=== PATIENT | female | born 1990 | race African-American/Black ===

== ENCOUNTER 2017-01-14 16:17 | Emergency (ER) | payer SELFPAY ==
[2017-01-14 16:37] VITALS: BP 123/72
--- NOTE | 2017-01-14 18:59 | RADIOLOGY REPORT (SQ) ---
EXAM DESCRIPTION: WRIST LEFT 3 VIEWS COMPLETED DATE/TIME: 01/14/2017 5:52 pm REASON FOR STUDY: pain COMPARISON: None. NUMBER OF VIEWS: Three views. TECHNIQUE: AP, lateral, and oblique radiographic images acquired of the left wrist. LIMITATIONS: None. FINDINGS: MINERALIZATION: Normal. BONES: No acute fracture or dislocation. No worrisome bone lesions. Normal alignment. SOFT TISSUES: No soft tissue swelling. No foreign body. OTHER: No other significant finding. IMPRESSION: No fracture identified. TECHNICAL DOCUMENTATION: JOB ID: [id number] [employer]- All Rights Reserved
--- NOTE | 2017-01-14 19:01 | RADIOLOGY REPORT (SQ) ---
EXAM DESCRIPTION: ANKLE LEFT COMPLETE COMPLETED DATE/TIME: 01/14/2017 5:52 pm REASON FOR STUDY: pain COMPARISON: None. NUMBER OF VIEWS: Three views. TECHNIQUE: AP, lateral, and oblique radiographic images acquired of the left ankle. LIMITATIONS: None. FINDINGS: MINERALIZATION: Normal. BONES: No acute fracture or dislocation. No worrisome bone lesions. JOINTS: No effusions. SOFT TISSUES: Lateral soft tissue swelling. No foreign body. OTHER: No other significant finding. IMPRESSION: No fracture identified. TECHNICAL DOCUMENTATION: JOB ID: [id number] [id number]- All Rights Reserved
[2017-01-14] MEDS ORDERED: HYDROCODONE/ACETAMINOPHEN 5-325 MG 6 TAB/DSPK PO PRN (19:11)
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
== END 2017-01-14 19:28 | disposition home or self-care (01) ==
LOC: ER 16:17
DX: S66.912A Strain of unspecified muscle, fascia and tendon at wrist and hand level, left hand, initial encounter (principal); S96.912A Strain of unspecified muscle and tendon at ankle and foot level, left foot, initial encounter; S09.90XA Unspecified injury of head, initial encounter; V87.7XXA Person injured in collision between other specified motor vehicles (traffic), initial encounter
CPT/HCPCS: 99284

== ENCOUNTER 2018-07-12 18:14 | Emergency (ER) | payer BC ==
[2018-07-12 18:31] VITALS: BP 108/55
[2018-07-12] MEDS ORDERED: IBUPROFEN 800 MG TABLET PO ONE (19:03)
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
== END 2018-07-12 19:15 | disposition home or self-care (01) ==
LOC: ER 18:14
DX: S09.21XA Traumatic rupture of right ear drum, initial encounter (principal); W50.0XXA Accidental hit or strike by another person, initial encounter
CPT/HCPCS: 99283

== ENCOUNTER 2018-07-20 21:41 | Emergency (ER) | payer BC ==
[2018-07-20] MEDS ORDERED: SULFAMETHOXAZOLE/TRIMETHOPRIM 800-160 MG TABLET PO ONE (23:05)
[2018-07-20] MEDS ORDERED: HYDROCODONE/ACETAMINOPHEN 5-325 MG (6 TAB/ER DISP) PO PRN (23:05)
[2018-07-20] MEDS ORDERED: CEPHALEXIN 500 MG CAPSULE PO ONE (23:05)
--- NOTE | 2018-07-20 23:11 | ER Document Report ---
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 Patient states that area will become tender and then will eventually start to spontaneously drain from the same site each time. Patient states she did have surgery on this area and that the drainage always comes from the previous surgical site. Patient denies any fever abdominal pain or vaginal discharge. Patient denies any concerns about sexually transmitted infections. Patient states that she has had pain for the past 2 days but started to have drainage today. Associated Symptoms: denies: Fever, Nausea, Vomiting Exacerbated by: Denies Relieved by: Denies Similar symptoms previously: Yes Recently seen / treated by doctor: No - ROS ROS below otherwise negative: Yes Systems Reviewed and Negative: Yes All other systems reviewed and negative - CONSTITUTIONAL Constitutional: DENIES: Fever, Chills - GASTROINTESTINAL Gastrointestinal: DENIES: Abdominal Pain, Nausea, Patient vomiting - URINARY Urinary: DENIES: Dysuria - MUSCULOSKELETAL Musculoskeletal: DENIES: Extremity pain, Back Pain - DERM Skin Color: Normal Notes: Drainage from old scarred surgical site Past Medical History - General Information source: Patient - Social History Smoking Status: Current Every Day Smoker Smoking Education Provided: Yes Frequency of alcohol use: None Drug Abuse: None 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 IN LAST 30 DAYS: No - HEENT HEENT: Atraumatic, Normocephalic - NECK Neck: Normal Inspection, Supple - RESPIRATORY Respiratory: Breath Sounds Normal, No Respiratory Distress - CARDIOVASCULAR Cardiovascular: Regular Rate, Regular Rhythm - REPRODUCTIVE Female Genitalia: Abnormal Inspection Notes: Purulent drainage noted to right inguinal fold just posterior to labia majora, no palpable abscess felt to need to be drained, normal skin color. - BACK Back: Normal Inspection - MUSCULOSKELETAL/EXTREMETIES Musculoskeletal/Extremeties: KUNAL SANCHEZ - NEURO Level of Consciousness: Awake, Alert, Appropriate Motor/Sensory: No Motor Deficit - DERM Integumentary: Warm, Dry, Abscess - right inguinal fold/posterior labia area Course - Re-evaluation Re-evalutation: 07/20/18 23:07 I was able to express purulent drainage by applying pressure just inside vaginal wall and moving laterally to the 8 o'clock position, there was no palpable area of fluctuance, no obvious induration. There was no communication vaginally to the draining fistula site. 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 Patient reports that area will become tender and start to drain 1-2 times a year. Patient denies any fever. Patient without any abdominal tenderness. Patient states that she did have this area surgically drained once but ever since then she has drainage that spontaneously comes out from the opening of her previous surgery. Patient nontoxic in appearance. No concern for sepsis at this time. Will cover with antibiotics and obtain wound culture at this time. Patient encouraged to follow-up with her residential solar consultant or general surgeon for definitive management of her chronic wound 07/21/18 02:04 - Vital Signs Vital signs: Temp Pulse Resp BP Pulse Ox 99.2 F 82 14 116/61 98 07/20/18 21:53 07/20/18 21:53 07/20/18 21:53 07/20/18 21:53 07/20/18 21:53 Discharge - Discharge Clinical Impression: Abscess Condition: Stable Disposition: HOME, SELF-CARE Instructions: Abscess ([facility]), Cephalexin ([facility]), Oral Narcotic Medication ([facility]), Trimethoprim-Sulfa ([facility]) Additional Instructions: Return immediately for any new or worsening symptoms Followup with your primary care provider, call tomorrow to make a followup appointment Perform warm soaks at least daily to help with symptoms Follow-up with a residential solar consultant or general surgeon for definitive management of this issue, call Saturday for an appointment Return immediately for any new or worsening symptoms, fever, increased pain swelling or redness to the area Prescriptions: Cephalexin Monohydrate [Keflex 500 mg Capsule] 500 mg PO Q6H 7 Days capsule Fluconazole [Diflucan] 150 mg PO ONCE PRN #1 tablet PRN Reason: Naproxen [Naprosyn 250 Nmg Tablet] 1 tab PO BID #14 tablet Sulfamethoxazole/Trimethoprim [Bactrim Ds Tablet] 1 each PO BID #20 tablet Forms: Smoking Cessation Education, Return to Work Referrals: FESTUS MYERS PA-C [Primary Care Provider] - Follow up as needed [facility] [Provider Group] - Follow up tomorrow [facility] [Provider Group] - Follow up as needed
[2018-07-21 02:47] VITALS: BP 116/58
== END 2018-07-21 00:02 | disposition home or self-care (01) ==
LOC: ER 21:41
DX: L02.215 Cutaneous abscess of perineum (principal); F17.200 Nicotine dependence, unspecified, uncomplicated
CPT/HCPCS: 87070; 87075; 87077; 87205; 99282

== ENCOUNTER 2018-09-19 17:09 | Emergency (ER) | payer BC ==
[2018-09-19] MEDS ORDERED: IBUPROFEN 800 MG TABLET PO ONE (17:56)
--- NOTE | 2018-09-19 17:56 | ER Document Report ---
ED Medical Screen (RME) - General Chief Complaint: Urinary Problem Stated Complaint: URINARY ISSUES Time Seen by Provider: 09/19/18 17:53 Primary Care Provider: FESTUS MYERS PA-C [Primary Care Provider] - Follow up as needed Mode of Arrival: Ambulatory Information source: Patient Notes: 28-year-old female presents to ED for vaginal pain herpes outbreak vaginal disc harge and pelvic pain with urination. She states that she has had herpes since 2016 and only has an outbreak 1 or 2 times a year. She states the pain is pretty severe and also to the rectum. She states she does have a vaginal discharge and pain with urination. She is alert and oriented respirations regular and unlabored speaking in full sentences. She states she smokes about 3 cigarettes a day and drinks about every other week. She denies any other medical history. She requested some ibuprofen and it was ordered in the pit area. Patient will need to be seen in the back to get a vaginal exam and swabs. I have greeted and performed a rapid initial assessment of this patient. A comprehensive ED assessment and evaluation of the patient, analysis of test results and completion of medical decision making process will be conducted by an additional ED providers. TRAVEL OUTSIDE OF THE [place] IN LAST 30 DAYS: No - Related Data Allergies/Adverse Reactions: No Known Allergies Allergy (Unverified 07/20/18 21:45) Past Medical History Renal/ Medical History: Denies: Hx Peritoneal Dialysis Past Surgical History: Reports: Other - Perineal abscess drainage - Immunizations Immunizations up to date: Yes Physical Exam - Vital signs Vitals: Temp Pulse Resp BP Pulse Ox 98.2 F 72 16 102/69 98 09/19/18 17:26 09/19/18 17:26 09/19/18 17:26 09/19/18 17:09/19/18 17:26 Course - Vital Signs Vital signs: Temp Pulse Resp BP Pulse Ox 98.2 F 72 16 102/69 98 09/19/18 17:26 09/19/18 17:26 09/19/18 17:26 09/19/18 17:26 09/19/18 17:26 Doctor's Discharge - Discharge Referrals: FESTUS MYERS PA-C [Primary Care Provider] - Follow up as needed
[2018-09-19 19:19] LABS: APPEARANCE,URINE CLEAR; BILIRUBIN,URINE NEGATIVE (NEGATIVE); COLOR,URINE STRAW; GLUCOSE, URINE NEGATIVE (NEGATIVE); KETONES,URINE NEGATIVE (NEGATIVE); LEUKOCYTE ESTERASE,URINE NEGATIVE (NEGATIVE); NITRITE,URINE NEGATIVE (NEGATIVE); PROTEIN,URINE NEGATIVE (NEGATIVE); URINE SPECIFIC GRAVITY 1.015; UROBILINOGEN,URINE NEGATIVE mg/dL (<2.0)
[2018-09-19] MEDS ORDERED: AZITHROMYCIN 1 GM SUSP PACKET PO ONE (19:36)
[2018-09-19] MEDS ORDERED: CEFTRIAXONE INJ 250 MG VIAL IM ONE (19:36)
--- NOTE | 2018-09-19 19:46 | ER Document Report ---
ED General - General Chief Complaint: Urinary Problem Stated Complaint: URINARY ISSUES Time Seen by Provider: 09/19/18 17:53 Primary Care Provider: FESTUS MYERS PA-C [NO LOCAL MD] - Follow up as needed Mode of Arrival: Ambulatory Information source: Patient, [facility] Records Notes: 28-year-old female with diagnosis of herpes virus and a history of trichomonas, bacterial vaginosis, chlamydia presenting to the emergency department for 2-week history of burning sensation around vagina and pain with urination. Patient complains of an odd smell when she urinates, yellow discharge, and the feeling of a lump in her perennial area. She states she noticed sores around her vagina over the past 2 weeks which are healing now. Patient reports unprotected sex, last Pap smear occurred in 2016. The patient is currently not on any medications. The patient had her tubes tied after having 2 children now age 4 and 11. Patient denies changes in urination or bowel movements, new rashes on hands/feet, GI upset. TRAVEL OUTSIDE OF THE [place] IN LAST 30 DAYS: No - HPI Onset: Other Onset/Duration: Gradual, Persistent Quality of pain: Burning Severity: Mild Pain Level: 1 Associated symptoms: denies: Chest pain, Nonproductive cough, Fever, Nausea, Vomiting, Shortness of breath Exacerbated by: Denies Relieved by: Denies Similar symptoms previously: Yes Recently seen / treated by doctor: No - Related Data Allergies/Adverse Reactions: No Known Allergies Allergy (Unverified 07/20/18 21:45) Past Medical History - General Information source: Patient - Social History Smoking Status: Never Smoker Frequency of alcohol use: Occasional Drug Abuse: None Lives with: Family Family History: None Patient has suicidal ideation: No Patient has homicidal ideation: No - Medical History Medical History: Negative Renal/ Medical History: Denies: Hx Peritoneal Dialysis Past Surgical History: Reports: Other - Perineal abscess drainage - Immunizations Immunizations up to date: Yes Review of Systems - Review of Systems Notes: REVIEW OF SYSTEMS: CONSTITUTIONAL : Denies fever, chills, or sweats. Denies recent illness. Denies weight loss, recent hospitalizations. EENT: Denies visual changes, eye pain. Denies sore throat, oral lesions, difficulty swallowing. CARDIOVASCULAR: Denies chest pain. Denies palpitations. Denies lower extremity edema. RESPIRATORY: Denies cough. Denies shortness of breath, wheezing. GASTROINTESTINAL: Denies abdominal pain or distention. Denies nausea, vomiting, or diarrhea. Denies blood in vomitus, stools, or per rectum. Denies black, tarry stools. Denies constipation. GENITOURINARY: Denies difficulty urinating, frequency, blood in urine. MUSCULOSKELETAL: Denies back or neck pain or stiffness. Denies joint pain or swelling. SKIN: Denies rash, lesions or sores. HEMATOLOGIC : Denies easy bruising or bleeding. LYMPHATIC: Denies swollen glands. NEUROLOGICAL: Denies confusion or altered mental status. Denies loss of consciousness. Denies dizziness or lightheadedness. Denies headache. Denies weakness or paralysis. Denies problems difficulty with ambulation, slurred speech. Denies sensory loss, numbness, or tingling. Denies seizures. PSYCHIATRIC: Denies anxiety or stress. Denies depression, suicidal ideation, or homicidal ideation. Denies visual or auditory hallucinations. Physical Exam - Vital signs Vitals: Temp Pulse Resp BP Pulse Ox 98.2 F 72 16 102/69 98 09/19/18 17:26 09/19/18 17:26 09/19/18 17:26 09/19/18 17:26 09/19/18 17:26 - Notes Notes: PHYSICAL EXAMINATION: GENERAL: Well-appearing, well-nourished and in no acute distress. HEAD: Atraumatic, normocephalic. EYES: Pupils equal round and reactive to light, extraocular movements intact, conjunctiva are normal. ENT: Nares patent, oropharynx clear without exudates. Moist mucous membranes. NECK: Normal range of motion, supple without lymphadenopathy LUNGS: Breath sounds clear to auscultation bilaterally and equal. No wheezes rales or rhonchi. HEART: Regular rate and rhythm without murmurs ABDOMEN: Soft, nontender, nondistended abdomen. No guarding, no rebound. No masses appreciated. Female : Pelvic exam; External genitalia with vesicular lesion to the labia majora. Speculum exam with thin white discharge Vaginal wall unremarkable. Os closed. No cervical motion tenderness. No adnexal tenderness or masses appreciated. Swabs obtained for gonorrhea, chlamydia and wet prep. Musculoskeletal: Normal range of motion, no pitting or edema. No cyanosis. NEUROLOGICAL: Cranial nerves grossly intact. Normal speech, normal gait. Normal sensory, motor exams PSYCH: Normal mood, normal affect. SKIN: Warm, Dry, normal turgor, no rashes or lesions noted. Course - Re-evaluation Re-evalutation: 09/20/18 02:16 Laboratory 09/19/18 09/19/18 09/19/18 18:06 18:06 19:34 Urine Color STRAW Urine Appearance CLEAR Urine pH 6.0 Ur Specific [place] 1.015 Urine Protein NEGATIVE Urine Glucose (UA) NEGATIVE Urine Ketones NEGATIVE Urine Blood NEGATIVE Urine Nitrite NEGATIVE Urine Bilirubin NEGATIVE Urine Urobilinogen NEGATIVE Ur Leukocyte Esterase NEGATIVE Urine WBC (Auto) 3 Urine RBC (Auto) 1 Squamous Epi Cells Auto 1 Urine Mucus (Auto) RARE Urine Ascorbic Acid NEGATIVE Urine HCG, Qual NEGATIVE Epi Cells (Wet Prep) Bacteria (Wet Prep) Trichomonas (Wet Prep) Vaginal WBC Vaginal RBC Vaginal Yeast Chlamydia DNA (PCR) Cancelled N.gonorrhoeae DNA (PCR) Cancelled 09/19/18 09/19/18 19:34 20:27 Urine Color Urine Appearance Urine pH Ur Specific [place] Urine Protein Urine Glucose (UA) Urine Ketones Urine Blood Urine Nitrite Urine Bilirubin Urine Urobilinogen Ur Leukocyte Esterase Urine WBC (Auto) Urine RBC (Auto) Squamous Epi Cells Auto Urine Mucus (Auto) Urine Ascorbic Acid Urine HCG, Qual Epi Cells (Wet Prep) 3+ EPITHELIALS SEEN Bacteria (Wet Prep) 3+ BACTERIA SEEN Trichomonas (Wet Prep) TRICHOMONAS SEEN Vaginal WBC 2+ WBCS SEEN Vaginal RBC NO RBCS SEEN Vaginal Yeast NO YEAST SEEN Chlamydia DNA (PCR) NOT DETECTED N.gonorrhoeae DNA (PCR) NOT DETECTED Temp Pulse Resp BP Pulse Ox 98.4 F 75 20 110/72 100 09/19/18 21:30 09/19/18 21:30 09/19/18 21:30 09/19/18 21:30 09/19/18 21:30 09/20/18 02:17 28-year-old female with diagnosis of herpes virus and a history of trichomonas, bacterial vaginosis, chlamydia presenting to the emergency department for 2-week history of burning sensation around vagina and pain with urination. Patient complains of an odd smell when she urinates, yellow discharge, and the feeling of a lump in her perennial area. She states she noticed sores around her vagina over the past 2 weeks which are healing now. Patient reports unprotected sex, she does express concern for sexually transmitted disease. Urinalysis not consistent with urinary tract infection. Patient hCG is negative. Wet prep is positive for trichomonas, bacterial vaginosis. Gonorrhea and Chlamydia were pending upon patient's visits and she did elect to be treated with azithromycin and Rocephin. Patient advised that her partners would need to be treated and that she would need to abstain from sexual activity for 1 week after her current partner was treated. Safe sex practices discussed. Acyclovir was prescribed for HSV maintenance. Patient was evaluated and treated as appropriate for the patient's presenting symptoms and complaint, with consideration of any critical or life threatening conditions that may be associated with their obtained history and exam as noted above. All results were discussed with patient. Bailey ent provided the opportunity to ask questions, and express concerns. Patient was educated on treatments based on their presumed diagnosis as noted above. At this time we will discharge the patient with return precautions and follow-up recommendations. Verbal discharge instructions given a the bedside. Medication warnings reviewed. Patient is in agreement with this plan and has verbalized understanding of return precautions. After careful consideration I feel that that patient can be safely discharged from the emergency department, they were advised to followup with a primary care physician in 2-3 days. Dictation on this chart was performed using voice recognition software and may result in unintended grammatical, spelling, syntax or errors. - Vital Signs Vital signs: Temp Pulse Resp BP Pulse Ox 98.4 F 75 20 110/72 100 09/19/18 21:30 09/19/18 21:30 09/19/18 21:30 09/19/18 21:30 09/19/18 21:30 Discharge - Discharge Clinical Impression: HSV-2 (herpes simplex virus 2) infection, Bacterial vaginosis, Trichomonas infection Condition: Good Disposition: HOME, SELF-CARE Instructions: Genital Herpes ([facility]), Trichomonas Infection ([facility]), Vaginosis, Bacterial ([facility]) Additional Instructions: You are being treated for bacterial vaginosis, an overgrowth of normal bacteria in the vagina. You are being sent home on an antibiotic called metronidazole. Take exactly as directed. Never drink alcohol while taking this antibiotic. Please return if you develop abdominal pain, fever greater than 101F, some vomiting, or any other symptoms that are concerning to you. You have tested positive for trichomonas which is a sexually transmitted disease. This will require 2 weeks of no sex and treatment of your sexual partner. Your exam is also consistent with genital herpes. You have also been treated for gonorrhea and chlamydia. We will not get those results for 24 hours. If they are positive you will receive a phone call and again your partner will need to be treated. Prescriptions: Acyclovir [Acyclovir 400 mg Tablet] 400 mg PO BID #60 tablet Metronidazole [Flagyl 500 mg Tablet] 500 mg PO BID #14 tablet Ondansetron [Zofran Odt 4 mg Tablet] 1 - 2 tab PO Q4H PRN #15 tab.rapdis PRN Reason: For Nausea/Vomiting Referrals: FESTUS MYERS PA-C [NO LOCAL MD] - Follow up as needed
[2018-09-19 19:53] LABS: BACTERIA (WET MOUNT) 3+ BACTERIA SEEN; EPITHELIALS (WET MOUNT) 3+ EPITHELIALS SEEN; RBCS (WET MOUNT) NO RBCS SEEN; T.VAGINALIS (WET MOUNT) TRICHOMONAS SEEN; WBCS (WET MOUNT) 2+ WBCS SEEN; YEAST (WET MOUNT) NO YEAST SEEN
[2018-09-19 21:31] VITALS: BP 110/72
[2018-09-19 23:06] LABS: CHLAM PCR NOT DETECTED (NOT DETECT); GON PCR NOT DETECTED (NOT DETECT)
== END 2018-09-19 21:27 | disposition home or self-care (01) ==
LOC: ER 17:09
DX: N76.0 Acute vaginitis (principal); B96.89 Other specified bacterial agents as the cause of diseases classified elsewhere; A59.01 Trichomonal vulvovaginitis; A60.00 Herpesviral infection of urogenital system, unspecified; R30.0 Dysuria
CPT/HCPCS: 99283; 96372; 87086; 87210; 81025; 81001; 87491; 87591; Q0144; J0696

== ENCOUNTER 2019-06-22 16:02 | Emergency (ER) | payer SELFPAY ==
--- NOTE | 2019-06-22 16:38 | ER Document Report ---
ED Medical Screen (RME) - General Chief Complaint: Pelvic Pain Stated Complaint: PELVIC PAIN Time Seen by Provider: 06/22/19 16:35 Primary Care Provider: MARK LANCE DO [Primary Care Provider] - Follow up as needed Mode of Arrival: Ambulatory Information source: Patient Notes: 29-year-old female presents to ED for complaint of bilateral lower abdomen/pelvic pain since the middle of May. She states she had a tubal ligation 5 years ago but she has not had a menstrual cycle since April. She has not had any vaginal discharge but she does have pelvic and abdominal pain. She states she has had nausea and very sleepy and tired but no vomiting and no fever. States she smokes 2 cigarettes a day rings on the weekends and denies any illicit drugs. I have greeted and performed a rapid initial assessment of this patient. A comprehensive ED assessment and evaluation of the patient, analysis of test results and completion of medical decision making process will be conducted by an additional ED providers. TRAVEL OUTSIDE OF THE [place] IN LAST 30 DAYS: No - Related Data Allergies/Adverse Reactions: No Known Allergies Allergy (Verified 06/22/19 16:31) Past Medical History Renal/ Medical History: Denies: Hx Peritoneal Dialysis Past Surgical History: Reports: Other - Perineal abscess drainage - Immunizations Immunizations up to date: Yes Physical Exam - Vital signs Vitals: Temp Pulse Resp BP Pulse Ox 98.3 F 71 16 110/68 98 06/22/19 16:06 06/22/19 16:06 06/22/19 16:06 06/22/19 16:06 06/22/19 16:06 Course - Vital Signs Vital signs: Temp Pulse Resp BP Pulse Ox 98.3 F 71 16 110/68 98 06/22/19 16:06 06/22/19 16:06 06/22/19 16:06 06/22/19 16:06 06/22/19 16:06 Doctor's Discharge - Discharge Referrals: MARK LANCE DO [Primary Care Provider] - Follow up as needed
[2019-06-22 17:13] LABS: ABSOLUTE BASOPHILS # (AUTO) 0.1 10^3/uL (0.0-0.2); ABSOLUTE EOSINOPHILS # (AUTO) 0.5 10^3/uL (0.0-0.6); ABSOLUTE LYMPHOCYTES (AUTO) 2.5 10^3/uL (0.5-4.7); ABSOLUTE MONOCYTES (AUTO) 0.7 10^3/uL (0.1-1.4); ABSOLUTE NEUT (AUTO) 4.7 10^3/uL (1.7-8.2); BASOPHILS % (AUTO) 0.8 % (0-2); EOSINOPHILS % (AUTO) 5.6 % (0-6); HEMATOCRIT 43.2 % (36.0-47.0); HEMOGLOBIN 14.3 g/dL (12.0-15.5); LYMPHOCYTES % (AUTO) 29.2 % (13-45); MEAN CORPUSCULAR HEMOGLOBIN 27.4 pg (27.0-33.4); MEAN CORPUSCULAR HGB CONC 33.2 g/dL (32.0-36.0); MEAN CORPUSCULAR VOLUME 83 fl (80-97); MONOCYTES % (AUTO) 8.6 % (3-13); PLATELET COUNT 276 10^3/uL (150-450); RED BLOOD COUNT 5.23 10^6/uL (3.72-5.28); SEGMENTED NEUTROPHILS % (AUTO) 55.8 % (42-78); TOTAL CELLS COUNTED % (AUTO) 100 %; WHITE BLOOD COUNT 8.5 10^3/uL (4.0-10.5)
[2019-06-22 17:15] LABS: APPEARANCE,URINE SLIGHTLY-CLOUDY; BILIRUBIN,URINE NEGATIVE (NEGATIVE); COLOR,URINE YELLOW; GLUCOSE, URINE NEGATIVE (NEGATIVE); KETONES,URINE NEGATIVE (NEGATIVE); PROTEIN,URINE NEGATIVE (NEGATIVE); URINE SPECIFIC GRAVITY 1.023; UROBILINOGEN,URINE NEGATIVE mg/dL (<2.0)
[2019-06-22 17:37] LABS: ALBUMIN 4.4 g/dL (3.5-5.0); ALKALINE PHOSPHATASE 59 U/L (38-126); ANION GAP 9 (5-19); ASPARTATE AMINO TRANSFERASE 26 U/L (14-36); BILIRUBIN,DIRECT 0.1 mg/dL (0.0-0.4); BILIRUBIN,TOTAL 0.3 mg/dL (0.2-1.3); BLOOD UREA NITROGEN 13 mg/dL (7-20); CALCIUM 9.5 mg/dL (8.4-10.2); CARBON DIOXIDE 29 mmol/L (22-30); CHLORIDE 101 mmol/L (98-107); GLUCOSE 70 mg/dL (75-110); POTASSIUM 3.8 mmol/L (3.6-5.0); TOTAL PROTEIN 7.8 g/dL (6.3-8.2)
--- NOTE | 2019-06-22 17:45 | RADIOLOGY REPORT (SQ) ---
EXAM DESCRIPTION: U/S NON-OB PELVIS TV W/O DOP COMPLETED DATE/TIME: 06/22/2019 5:32 pm REASON FOR STUDY: Bilateral pelvic pain COMPARISON: None. TECHNIQUE: Dynamic and static grayscale images acquired of the pelvis via transvaginal approach and recorded on PACS. Additional selected color Doppler and spectral images recorded. LIMITATIONS: Body habitus. Bowel gas. FINDINGS: UTERUS: Contour normal. No mass. ENDOMETRIAL STRIPE: There is an echogenic area within the endometrial canal. Does the patient have a n IUD? CERVIX: 1.4 cm. No nabothian cysts. RIGHT OVARY AND DOPPLER: Ovary not seen. LEFT OVARY AND DOPPLER: Ovary not seen. FREE FLUID: None noted. OTHER: No other significant finding. MEASUREMENTS: UTERUS: 5.2 x 3.9 x 2.2 cm. ENDOMETRIAL STRIPE: 10 mm. RIGHT OVARY: Ovary not seen. LEFT OVARY: Ovary not seen. IMPRESSION: Possible IUD. No acute finding in the pelvis. Study limited. The ovaries could not be seen. TECHNICAL DOCUMENTATION: JOB ID: [id number]- All Rights Reserved Rev-01/03 Reading location - IP/workstation name: [email or web address]
[2019-06-22 19:25] LABS: BACTERIA (WET MOUNT) 3+ BACTERIA SEEN; EPITHELIALS (WET MOUNT) 3+ EPITHELIALS SEEN; T.VAGINALIS (WET MOUNT) NO TRICHOMONAS SEEN; WBCS (WET MOUNT) 1+ WBCS SEEN; YEAST (WET MOUNT) NO YEAST SEEN
[2019-06-22 20:46] LABS: CHLAM PCR NOT DETECTED (NOT DETECT)
--- NOTE | 2019-06-22 20:46 | ER Document Report ---
ED GI/ - General Mode of Arrival: Ambulatory TRAVEL OUTSIDE OF THE [place] IN LAST 30 DAYS: No <AUSTEN KOTHARI - Last Filed: 06/22/19 20:41> <DESIREE NEAL - Last Filed: 06/22/19 21:40> - General Chief Complaint: Pelvic Pain Stated Complaint: PELVIC PAIN Time Seen by Provider: 06/22/19 16:35 Primary Care Provider: MARK LANCE DO [NO LOCAL MD] - Follow up as needed Notes: RME NOTE: 29-year-old female presents to ED for complaint of bilateral lower abdomen/pelvic pain since the middle of May. She states she had a tubal ligation 5 years ago but she has not had a menstrual cycle since April. She has not had any vaginal discharge but she does have pelvic and abdominal pain. She states she has had nausea and very sleepy and tired but no vomiting and no fever. States she smokes 2 cigarettes a day rings on the weekends and denies any illicit drugs. My HPI: Patient is a 29-year-old female presents to the emergency department for intermittent pelvic pain for the last month. States she did not get her menstrual cycle in May. Unsure of the date of her last menstrual period in April. Denying any vaginal discharge. States she did undergo tubal ligation approximately 5 years ago. States currently she does have bilateral pelvic pain noted. States it is sharp in nature. Patient's denying any fevers, nausea, vomiting, diarrhea. (AUSTEN KOTHARI) - Related Data Allergies/Adverse Reactions: No Known Allergies Allergy (Verified 06/22/19 16:31) Past Medical History - General Information source: Patient - Social History Smoking Status: Current Some Day Smoker Chew tobacco use (# tins/day): No Frequency of alcohol use: Occasional Drug Abuse: None Family History: None Patient has suicidal ideation: No Patient has homicidal ideation: No Renal/ Medical History: Denies: Hx Peritoneal Dialysis Past Surgical History: Reports: Hx Tubal Ligation, Other - Perineal abscess drainage - Immunizations Immunizations up to date: Yes <AUSTEN KOTHARI - Last Filed: 06/22/19 20:41> Review of Systems - Review of Systems Constitutional: denies: Fever EENT: No symptoms reported Cardiovascular: No symptoms reported Respiratory: No symptoms reported Gastrointestinal: No symptoms reported Genitourinary: See HPI Female Genitourinary: See HPI Musculoskeletal: No symptoms reported Skin: No symptoms reported Hematologic/Lymphatic: No symptoms reported Neurological/Psychological: No symptoms reported <AUSTEN KOTHARI - Last Filed: 06/22/19 20:41> Physical Exam <AUSTEN KOTHARI - Last Filed: 06/22/19 20:41> - Vital signs Vitals: Temp Pulse Resp BP Pulse Ox 98.3 F 71 16 110/68 98 06/22/19 16:06 06/22/19 16:06 06/22/19 16:06 06/22/19 16:06 06/22/19 16:06 - Notes Notes: GENERAL: Alert, interacts well. No acute distress. HEAD: Normocephalic, atraumatic. EYES: Pupils equal, round, and reactive to light. Extraocular movements intact. ENT: Oral mucosa moist, tongue midline. NECK: Full range of motion. Supple. Trachea midline. LUNGS: Clear to auscultation bilaterally, no wheezes, rales, or rhonchi. No respiratory distress. HEART: Regular rate and rhythm. No murmur ABDOMEN: Soft, bilateral pelvic pain noted, no suprapubic pain noted, otherwise abdominal exam benign. Non-distended. Bowel sounds present in all 4 quadrants. EXTREMITIES: Moves all 4 extremities spontaneously. No edema, normal radial and dorsalis pedis pulses bilaterally. No cyanosis. BACK: no cervical, thoracic, lumbar midline tenderness. No saddle anesthesia, normal distal neurovascular exam. No CVA tenderness noted bilaterally. NEUROLOGICAL: Alert and oriented x3. Normal speech. cranial nerves II through XII grossly intact PSYCH: Normal affect, normal mood. SKIN: Warm, dry, normal turgor. No rashes or lesions noted. (AUSTEN KOTHARI) Course - Laboratory Result Diagrams: 06/22/19 16:55 06/22/19 16:55 <AUSTEN KOTHARI - Last Filed: 06/22/19 20:41> - Laboratory Result Diagrams: 06/22/19 16:55 06/22/19 16:55 <DESIREE NEAL - Last Filed: 06/22/19 21:40> - Re-evaluation Re-evalutation: Laboratory 06/22/19 06/22/19 06/22/19 16:55 16:55 16:55 WBC 8.5 RBC 5.23 Hgb 14.3 Hct 43.2 MCV 83 MCH 27.4 MCHC 33.2 RDW 14.0 Plt Count 276 Lymph % (Auto) 29.2 Piatt % (Auto) 8.6 Eos % (Auto) 5.6 Baso % (Auto) 0.8 Absolute Neuts (auto) 4.7 Absolute Lymphs (auto) 2.5 Absolute Monos (auto) 0.7 Absolute Eos (auto) 0.5 Absolute Basos (auto) 0.1 Seg Neutrophils % 55.8 Sodium 138.9 Potassium 3.8 Chloride 101 Carbon Dioxide 29 Anion Gap 9 BUN 13 Creatinine 0.76 Est GFR ( Amer) > 60 Est GFR (MDRD) Non-Af > 60 Glucose 70 L Calcium 9.5 Total Bilirubin 0.3 Direct Bilirubin 0.1 Neonat Total Bilirubin Not Reportable Neonat Direct Bilirubin Not Reportable Neonat Indirect Bili Not Reportable AST 26 ALT 19 Alkaline Phosphatase 59 Total Protein 7.8 Albumin 4.4 Serum HCG, Qual NEGATIVE Urine Color Urine Appearance Urine pH Ur Specific [place] Urine Protein Urine Glucose (UA) Urine Ketones Urine Blood Urine Nitrite (Reflex) Urine Bilirubin Urine Urobilinogen Leukocyte Esterase Rfl Urine RBC (Auto) Urine WBC (Reflex) Squamous Epi Cells Auto Urine Mucus (Auto) Urine Ascorbic Acid Epi Cells (Wet Prep) Bacteria (Wet Prep) Trichomonas (Wet Prep) Vaginal WBC Vaginal Yeast 06/22/19 06/22/19 16:55 19:04 WBC RBC Hgb Hct MCV MCH MCHC RDW Plt Count Lymph % (Auto) [place] % (Auto) Eos % (Auto) Baso % (Auto) Absolute Neuts (auto) Absolute Lymphs (auto) Absolute Monos (auto) Absolute Eos (auto) Absolute Basos (auto) Seg Neutrophils % Sodium Potassium Chloride Carbon Dioxide Anion Gap BUN Creatinine Est GFR ( Amer) Est GFR (MDRD) Non-Af Glucose Calcium Total Bilirubin Direct Bilirubin Neonat Total Bilirubin Neonat Direct Bilirubin Neonat Indirect Bili AST ALT Alkaline Phosphatase Total Protein Albumin Serum HCG, Qual Urine Color YELLOW Urine Appearance SLIGHTLY-CLOUDY Urine pH 6.0 Ur Specific [place] 1.023 Urine Protein NEGATIVE Urine Glucose (UA) NEGATIVE Urine Ketones NEGATIVE Urine Blood NEGATIVE Urine Nitrite (Reflex) NEGATIVE Urine Bilirubin NEGATIVE Urine Urobilinogen NEGATIVE Leukocyte Esterase Rfl NEGATIVE Urine RBC (Auto) 3 Urine WBC (Reflex) 1 Squamous Epi Cells Auto 5 Urine Mucus (Auto) OCC Urine Ascorbic Acid NEGATIVE Epi Cells (Wet Prep) 3+ EPITHELIALS SEEN Bacteria (Wet Prep) 3+ BACTERIA SEEN Trichomonas (Wet Prep) NO TRICHOMONAS SEEN Vaginal WBC 1+ WBCS SEEN Vaginal Yeast NO YEAST SEEN Transvaginal US 06/22/19 16:40 IMPRESSION: Possible IUD. No acute finding in the pelvis. Study limited. The ovaries could not be seen. I discussed with patient extensively her ultrasound results. I have discussed that we were able to rule out tubo-ovarian abscesses as patient's pelvic exam reveals no obvious discharge and has no leukocytosis. I have been able to rule out ectopic as this patient's hCG is negative. Patient's ultrasound was unable to visualize bilateral ovaries although shows no signs of inflammation or fluid. Patient's physical exam is benign. States she does have intermittent pelvic pain. Patient is non-tachycardic, non-hypotensive, torsion is not suspected. Patient then becomes very agitated. Voices over and over again at this hospital "is doing nothing." States she came to the emergency department to find out why she had pelvic pain and we are unable to give her answers. I have attempted to discuss patient's bowel gas and body habitus which is why we are unable to get transvaginal ultrasound images of her ovaries. Patient then starts yelling at me again stating "this hospital is the worst!" I have been discussed with her at length potential use of CT imaging to better visualize her ovaries. Patient is very adamant that we do proceed with CT imaging at this time. I have also performed a pelvic exam. No obvious discharge noted in the cul-de-sac, no cervical motion tenderness noted, no adnexal tenderness noted bilaterally. Repeat abdominal examination does reveal slight bilateral pelvic pain. CT imaging ordered at this time. 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 (AUSTEN KOTHARI) - Vital Signs Vital signs: Temp Pulse Resp BP Pulse Ox 99.1 F 73 16 110/83 97 06/22/19 20:16 06/22/19 20:16 06/22/19 20:16 06/22/19 20:16 06/22/19 20:16 - Laboratory Laboratory results interpreted by me: 06/22/19 16:55 Glucose 70 L Discharge <AUSTEN KOTHARI - Last Filed: 06/22/19 20:41> <DESIREE NEAL - Last Filed: 06/22/19 21:40> - Discharge Clinical Impression: Pelvic pain, Bacterial vaginosis Ovarian cyst Qualifiers: Laterality: right Qualified Code(s): N83.201 - Unspecified ovarian cyst, right side Condition: Stable Disposition: HOME, SELF-CARE Instructions: Pelvic Pain ([facility]), Vaginosis, Bacterial ([facility]) Additional Instructions: You were seen today in the emergency department for pelvic pain. You have a rig ht ovarian cyst. Ovarian cyst usually come about assisted between each periods. These are usually very benign and will go away on their own. You also have bacterial vaginosis. You are being treated with Flagyl. Make sure you take all your medication as prescribed. Please follow-up with your primary care provider in regards to this visit. Prescriptions: Metronidazole [Flagyl 500 mg Tablet] 500 mg PO BID #14 tablet Referrals: MARK LANCE DO [NO LOCAL MD] - Follow up as needed
[2019-06-22 21:01] VITALS: BP 110/83
--- NOTE | 2019-06-22 21:35 | RADIOLOGY REPORT (SQ) ---
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 COMPARISON: Ultrasound from earlier the same day. TECHNIQUE: CT scan of the abdomen and pelvis was performed with IV contrast. This exam was performed according to our departmental dose-optimization program, which includes automated exposure control, adjustment of the mA and/or kV according to patient size and/or use of iterative reconstruction technique. FINDINGS: The lung bases are clear. No pleural or pericardial effusions. The gallbladder is contracted, limiting evaluation. Liver, spleen, pancreas, adrenal glands, and kidneys are normal without hydronephrosis or urinary stones. There is a 1.5 cm right ovarian corpus luteum cyst. No small bowel obstruction. The appendix is normal. No evidence of acute diverticulitis. No adenopathy, free fluid, or free air is identified. The aorta is normal caliber. The osseous structures are intact. IMPRESSION: 1.5 cm right corpus luteum ovarian cyst. No follow-up imaging is recommended. Reference: J Am Amie Radiol 2013;10:675-681
[2019-06-22] MEDS ORDERED: METRONIDAZOLE 500 MG TABLET PO ONE (21:40)
== END 2019-06-22 22:00 | disposition home or self-care (01) ==
LOC: ER 16:02
DX: N76.0 Acute vaginitis (principal); B96.89 Other specified bacterial agents as the cause of diseases classified elsewhere; N83.11 Corpus luteum cyst of right ovary; R10.2 Pelvic and perineal pain; Z98.51 Tubal ligation status; R11.0 Nausea; R53.83 Other fatigue; F17.210 Nicotine dependence, cigarettes, uncomplicated
CPT/HCPCS: 36415; 74177; 76830; 80053; 81001; 84703; 85025; 87210; 87491; 87591; 99284

== ENCOUNTER 2019-12-17 17:29 | Emergency (ER) | payer SELFPAY ==
[2019-12-17 19:10] VITALS: BP 117/70
[2019-12-17] MEDS ORDERED: IBUPROFEN 800 MG TABLET PO ONE (19:11)
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
== END 2019-12-17 19:21 | disposition home or self-care (01) ==
LOC: ER 17:29
DX: S00.83XA Contusion of other part of head, initial encounter (principal); M79.10 Myalgia, unspecified site; R51 Headache; R22.0 Localized swelling, mass and lump, head; H57.89 Other specified disorders of eye and adnexa; Y04.0XXA Assault by unarmed brawl or fight, initial encounter; F17.210 Nicotine dependence, cigarettes, uncomplicated
CPT/HCPCS: 99283

== ENCOUNTER 2020-06-02 01:07 | Emergency (ER) | payer SELFPAY ==
[2020-06-02] MEDS ORDERED: IBUPROFEN 600 MG TABLET PO ONE (01:29)
--- NOTE | 2020-06-02 01:31 | ER Document Report ---
ED Medical Screen (RME) - General Chief Complaint: Back Pain Stated Complaint: BACK PAIN Time Seen by Provider: 06/02/20 01:22 Primary Care Provider: MARK LANCE DO [Primary Care Provider] - Follow up as needed Mode of Arrival: Ambulatory Information source: Patient Notes: Patient is a 30-year-old -[place] female coming in today with low back pain x2-1/2 weeks. States she fell about 2 weeks ago. No bladder or bowel dysfunction. No saddle anesthesia. No focal weakness. Also having some vaginal irritation. General exam: Nontoxic Musculoskeletal tenderness in the lumbar spine. No step-off Abdominal no CVA tenderness I have greeted and performed a rapid initial assessment of this patient. A comprehensive ED assessment and evaluation of the patient, analysis of test results and completion of the medical decision making process will be conducted by additional ED providers. TRAVEL OUTSIDE OF THE [place] IN LAST 30 DAYS: No - Related Data Allergies/Adverse Reactions: No Known Allergies Allergy (Verified 06/02/20 01:27) Past Medical History - Social History Frequency of alcohol use: None Drug Abuse: None Renal/ Medical History: Denies: Hx Peritoneal Dialysis Past Surgical History: Reports: Hx Tubal Ligation, Other - Perineal abscess drainage - Immunizations Immunizations up to date: Yes Doctor's Discharge - Discharge Referrals: MARK LANCE DO [Primary Care Provider] - Follow up as needed
[2020-06-02 06:48] LABS: APPEARANCE,URINE SLIGHTLY-CLOUDY; BILIRUBIN,URINE NEGATIVE (NEGATIVE); COLOR,URINE YELLOW; GLUCOSE, URINE NEGATIVE (NEGATIVE); KETONES,URINE NEGATIVE (NEGATIVE); PROTEIN,URINE 30 mg/dL (NEGATIVE); URINE SPECIFIC GRAVITY 1.035
--- NOTE | 2020-06-02 07:39 | RADIOLOGY REPORT (SQ) ---
EXAM: X-ray lumbosacral spine with obliques. CLINICAL DATA: 30-year-old female with back pain status post fall two weeks ago TECHNICAL DATA: Five x-ray views of the lumbar spine were performed including an AP, both obliques, lateral and coned lateral x-ray views performed on 06/02/2020 at 7:06 AM. Comparison: CT abdomen and pelvis performed on 06/22/2019. FINDINGS: Five lumbar type vertebrae are identified. The vertebral body height and intervertebral disc space height are normal. The alignment is normal. There is no evidence of fracture or subluxation. There are no significant degenerative changes of the lumbar spine. The pedicles appear intact. Bone mineralization is normal. The sacroiliac joints are within normal limits. IMPRESSION: Normal radiographic examination of the lumbar spine. There is no evidence of acute osseous abnormality.
[2020-06-02 09:41] VITALS: BP 111/60
[2020-06-02] MEDS ORDERED: HYDROCODONE/ACETAMINOPHEN 5-325 MG TABLET PO ONE (12:09)
--- NOTE | 2020-06-02 12:56 | RADIOLOGY REPORT (SQ) ---
EXAM DESCRIPTION: T SPINE AP/LAT IMAGES COMPLETED DATE/TIME: 06/02/2020 12:49 pm REASON FOR STUDY: lower thoracic back pain COMPARISON: None. NUMBER OF VIEWS: Two views. TECHNIQUE: AP and lateral radiographic images acquired of the thoracic spine. LIMITATIONS: None. FINDINGS: MINERALIZATION: Normal. ALIGNMENT: Normal. No scoliosis. VERTEBRAE: No fracture or bone lesion. Maintained height, normal segmentation. DISCS: No significant loss of height or significant narrowing. No large osteophytes. HARDWARE: None in the spine. MEDIASTINUM AND SOFT TISSUES: Normal heart size and aortic contour. No soft tissue abnormality. VISUALIZED LUNG SHAW: Clear. OTHER: No other significant finding. IMPRESSION: NO SIGNIFICANT RADIOGRAPHIC FINDING IN THE THORACIC SPINE. TECHNICAL DOCUMENTATION: JOB ID: [id number] 2010 [employer]- All Rights Reserved Reading location - IP/workstation name: [email or web address]
--- NOTE | 2020-06-02 12:58 | ER Document Report ---
ED General - General Chief Complaint: Back Pain Stated Complaint: BACK PAIN Time Seen by Provider: 06/02/20 01:22 Primary Care Provider: MARK LANCE DO [NO LOCAL MD] - Follow up as needed Mode of Arrival: Ambulatory Information source: Patient Notes: Patient presents with a 2-week history of back pain after a fall. Patient states she slipped and fell on the floor landing on her back. Patient denies any head injury or loss of consciousness. Patient also complains of vaginal irritation for the past week with some discharge. Patient denies any urinary symptoms or fever. TRAVEL OUTSIDE OF THE [place] IN LAST 30 DAYS: No - HPI Onset: Other - 2 weeks Onset/Duration: Persistent Quality of pain: Achy Pain Level: 5 Associated symptoms: Other - Vaginal irritation, back pain. 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 denies: Fever EENT: No symptoms reported Cardiovascular: No symptoms reported. denies: Chest pain Respiratory: No symptoms reported. denies: Cough, Short of breath Gastrointestinal: No symptoms reported. denies: Abdominal pain, Diarrhea, Nausea, Vomiting Genitourinary: Other - Irritation to perineum. denies: Dysuria Female Genitourinary: Vaginal discharge. denies: Musculoskeletal: Back pain Skin: No symptoms reported Hematologic/Lymphatic: No symptoms reported Neurological/Psychological: No symptoms reported Physical Exam - Vital signs Vitals: Temp Pulse Resp BP Pulse Ox 98.2 F 83 16 106/57 L 98 06/02/20 01:24 06/02/20 01:24 06/02/20 01:24 06/02/20 01:24 06/02/20 01:24 - Notes Notes: PHYSICAL EXAMINATION: GENERAL: Well-appearing, well-nourished and in no acute distress. HEAD: Atraumatic, normocephalic. EYES: sclera clear, anicteric, conjunctiva are normal. ENT: nares patent, Moist mucous membranes. NECK: Normal range of motion, supple no lymphadenopathy LUNGS: respirations unlabored HEART: Regular rate and rhythm without murmurs EXTREMITIES: Normal range of motion, no pitting or edema. No cyanosis. Gait normal, pt ambulates without difficulty BACK: Thoracolumbar tenderness, no deformities or step-offs. No CVA tenderness. NEUROLOGICAL: Cranial nerves grossly intact. Normal speech, normal gait. No saddle anesthesia. PSYCH: Normal mood, normal affect. SKIN: Warm, Dry, normal turgor, no rashes or lesions noted. - Genitourinary External exam: Other - demarcated rash in inguinal folds with some scale Speculum exam: Vaginal discharge Vaginal bleeding: None Bimanuel exam: Normal. No: Cervical motion tender, Adnexal tenderness Notes: Thick exam performed with Mable Urbina on standby Course - Re-evaluation Re-evalutation: 06/02/20 13:36 The patient presents with low back pain without signs of spinal cord compression, cauda equina syndrome, infection, aneurysm, or other serious etiology. The patient is neurologically intact. Given the extremely risk of these diagnoses further testing and evaluation for these possibilities does not appear to be indicated at this time. Patient has been instructed to return if the symptoms worsen or change in any way. Patient did test positive for trichomonas, will treat for possible gonorrhea chlamydia although we are still awaiting these test results. Patient encouraged to have her partner treated as well. - Vital Signs Vital signs: Temp Pulse Resp BP Pulse Ox 97.9 F 77 17 111/60 98 06/02/20 09:39 06/02/20 09:39 06/02/20 09:39 06/02/20 09:39 06/02/20 09:39 - Laboratory Laboratory results interpreted by me: 06/02/20 06:33 Urine Protein 30 H Urine Urobilinogen 2.0 H Leukocyte Esterase Rfl LARGE H Urine Ascorbic Acid 40 H 06/02/20 15:41 Labs- All tests 24 hr 06/02/20 06/02/20 06/02/20 06:33 12:39 12:39 Urine Color YELLOW Urine Appearance SLIGHTLY-CLOUDY Urine pH 5.0 Ur Specific [place] 1.035 Urine Protein 30 H Urine Glucose (UA) NEGATIVE Urine Ketones NEGATIVE Urine Blood NEGATIVE Urine Nitrite (Reflex) NEGATIVE Urine Bilirubin NEGATIVE Urine Urobilinogen 2.0 H Leukocyte Esterase Rfl LARGE H Urine RBC (Auto) 15 Urine WBC (Reflex) 58 Squamous Epi Cells Auto 6 Urine Mucus (Auto) MOD Urine Ascorbic Acid 40 H Urine HCG, Qual NEGATIVE Epi Cells (Wet Prep) 4+ EPITHELIALS SEEN Bacteria (Wet Prep) 4+ BACTERIA SEEN Trichomonas (Wet Prep) TRICHOMONAS SEEN Vaginal WBC 2+ WBCS SEEN Vaginal RBC NO RBCS SEEN Vaginal Yeast NO YEAST SEEN Chlamydia DNA (PCR) NOT DETECTED N.gonorrhoeae DNA (PCR) NOT DETECTED - Diagnostic Test Radiology reviewed: Image reviewed, Reports reviewed Discharge - Discharge Clinical Impression: Trichomoniasis, Fungal skin infection Low back pain Qualifiers: Chronicity: acute Back pain laterality: unspecified Sciatica presence: without sciatica Qualified Code(s): M54.5 - Low back pain UTI (urinary tract infection) Qualifiers: Urinary tract infection type: site unspecified Hematuria presence: without hematuria Qualified Code(s): N39.0 - Urinary tract infection, site not specified Condition: Stable Disposition: HOME, SELF-CARE Instructions: Cephalexin ([facility]), Low Back Pain ([facility]), Metronidazole ([facility]), Muscle Strain ([facility]), Rocephin ([facility]), Trichomonas Infection ([facility]), Urinary Tract Infection ([facility]) Additional Instructions: Return immediately for any new or worsening symptoms Followup with your primary care provider, call tomorrow to make a followup appointment Have partner seek treatment for trichomonas. Prescriptions: Clotrimazole [Antifungal] 1 applic TP BID #113 cream..g. Metronidazole [Flagyl 500 mg Tablet] 500 mg PO BID #14 tablet Cyclobenzaprine HCl [Flexeril 10 Mg Tablet] 10 mg PO TID #15 tablet Cephalexin Monohydrate [Keflex 500 mg Capsule] 500 mg PO BID 5 Days #10 capsule Naproxen [Naprosyn 250 Nmg Tablet] 1 tab PO BID #14 tablet Forms: Return to Work Referrals: MARK LANCE DO [NO LOCAL MD] - Follow up as needed
[2020-06-02 13:15] LABS: BACTERIA (WET MOUNT) 4+ BACTERIA SEEN; RBCS (WET MOUNT) NO RBCS SEEN; T.VAGINALIS (WET MOUNT) TRICHOMONAS SEEN; WBCS (WET MOUNT) 2+ WBCS SEEN; YEAST (WET MOUNT) NO YEAST SEEN
[2020-06-02 13:16] LABS: EPITHELIALS (WET MOUNT) 4+ EPITHELIALS SEEN
[2020-06-02] MEDS ORDERED: LIDOCAINE 1% INJ (10 MG/ML) 10 ML MDV INJ ONE (13:30)
[2020-06-02] MEDS ORDERED: CEFTRIAXONE INJ 1000 MG VIAL IM ONE (13:30)
[2020-06-02] MEDS ORDERED: METRONIDAZOLE 500 MG TABLET PO ONE (13:31)
[2020-06-02] MEDS ORDERED: AZITHROMYCIN 250 MG TABLET PO ONE (13:31)
[2020-06-02] MEDS ORDERED: LIDOCAINE 5% (700 MG) TRANSDERMAL ADH..PATCH TP ONE (13:32)
[2020-06-02 14:39] LABS: CHLAM PCR NOT DETECTED (NOT DETECT)
== END 2020-06-02 13:56 | disposition home or self-care (01) ==
LOC: ER 01:07
DX: M54.5 Low back pain (principal); W01.0XXA Fall on same level from slipping, tripping and stumbling without subsequent striking against object, initial encounter; N39.0 Urinary tract infection, site not specified; B36.9 Superficial mycosis, unspecified; A59.9 Trichomoniasis, unspecified; Z87.891 Personal history of nicotine dependence
CPT/HCPCS: 99284; 96372; 87210; 81025; 81001; 87491; 87591; 72110; 72070; J0696

== ENCOUNTER → 2020-07-08 | Outpatient (CLI) | payer SELFPAY ==
--- NOTE | 2020-07-08 13:21 | ER [facility] ASSESSMENT REPORT ---
Intake - In the Last 14 days Have you traveled outside [place]?: No Have you been in close contact with someone CONFIRMED: Yes Worked in Healthcare?: No - Symptoms Subjective Fever(Bard feverish): No Chills: No Muscule Aches: No Runny Nose: No Sore Throat: No Cough (New or worsening chronic cough): No Shortness of breath: No Nausea or Vomiting: No Headache: No Abdominal Pain: No Diarrhea(3 or more loose stools in last 24 hours): No - Do you have any of the following Chronic lung disease: Asthma or emphysema or COPD: No Cystic Fibrosis: No Diabetes: No High Blood Pressure: No Cardiovascular Disease: No Chronic Kidney Disease: No Chronic Liver Disease: No Chronic blood disorder like Sickle Cell Disease: No Weak immune system due to disease or medication: No Neurologic condition that limits movement: No Developmental delay - Moderate to Severe: No Recent (within past 2 weeks) or current : No Morbid Obesity (>100 pounds over ideal weight): No - Objective Temperature: 97.5 F Pulse Rate: 58 Respiratory Rate: 16 Blood Pressure: 131/58 O2 Sat by Pulse Oximetry: 97 Objective: Given above, testing performed: If Testing Performed: Test Specimen Type Sent to General - General Mode of Arrival: Ambulatory Information source: Patient Notes: Patient presents to the [facility] for screening for the coronavirus. Patient was exposed to someone who tested positive recently. Patient denies any symptoms at this time. - Related Data Allergies/Adverse Reactions: No Known Allergies Allergy (Verified 06/02/20 01:27) Past Medical History - General Information source: Patient - Social History Smoking Status: Former Smoker Lives with: Family Family History: None - Medical History Medical History: Negative Renal/ Medical History: Denies: Hx Peritoneal Dialysis Surgical Hx: Negative Past Surgical History: Reports: Hx Tubal Ligation, Other - Perineal abscess drainage Physical Exam - Notes Notes: The patient was evaluated during the global Covid 19 pandemic, and that diagnosis was suspected/considered upon their initial presentation. Their evaluation, treatment and testing was consistent with current guidelines for patients who present with complaints or symptoms that may be related to Covid 19. Full physical exam could not be performed due to covid 19 isolation protocols. Constitutional: Nontoxic appearance, no acute distress Eyes: Nonicteric, extraocular movements intact, sclera clear Cardiovascular: Heart rate and rhythm regular, no JVD Respiratory: Breath sounds clear bilaterally, nonlabored breathing, no use of accessory muscles, no tachypnea Gastrointestinal: Abdomen not distended Muculoskeletal: Moves all extremities well, normal gait Skin: Normal color Neuro: Awake alert oriented, normal speech Psych: Normal mood and affect Diagnostic Results Laboratory Results: Patient presents with exposure worrisome for possible Covid 19. Patient does no t have emergency worrying symptoms such as difficulty breathing, shortness of breath, chest pain, pressure, confusion or cyanosis. Patient appears suitable for discharge as vital signs are stable and patient is nontoxic in appearance. Good return precautions have been discussed with patient, patient verbalized understanding and is agreeable with discharge plan of care at this time. Patient Education/Counseling Counseling/Education: Patient was provided with discharge information including: As a person under investigation for Covid 19, the [place] department of Health and Human Services, division of public health advises you to adhere to the following guidance until your test results are reported to you. If your test result is positive, you will receive additional information from your provider and your local health department at that time. Remain at home until you are cleared by the health provider or public health authorities. Keep a log of visitors to your home, notify any visitors to your home of your isolation status. If you plan to move to a new address or leave the county, notify the local health department in your County. Call your doctor or seek care if you have an urgent medical need. Before seeking medical care, call ahead to get instructions from the provider before arriving at the medical office clinic or hospital. Notify them that you are being tested for the virus that causes Covid 19 so that arrangements can be made, as necessary, to prevent transmission to others in the healthcare setting. Next, notify the local health department in your county. If a medical emergency arises and you need to call 911, inform the first responders that you are being tested for the virus that causes Covid 19. Next, notify the local health department in your county. [facility] Discharge - Discharge Condition: Stable Disposition: Home; Selfcare
[2020-07-08 13:45] VITALS: BP 131/58
== END ==
LOC: RDC 12:48
PROVIDERS: ATTEND Nurse Practitioner Family
DX: Z20.828 Contact with and (suspected) exposure to other viral communicable diseases (principal); Z87.891 Personal history of nicotine dependence
CPT/HCPCS: 87635; 99201; 99211; C9803

== ENCOUNTER 2020-07-12 18:26 | Emergency (ER) | payer OTHER ==
[2020-07-12 18:50] VITALS: BP 136/78
== END 2020-07-12 21:38 | disposition home or self-care (01) ==
LOC: ER 18:26
DX: Z53.21 Procedure and treatment not carried out due to patient leaving prior to being seen by health care provider (principal)